=== PATIENT | female | born 1995 | race Caucasian/White ===

== ENCOUNTER 2018-06-30 09:56 | Inpatient (IN) | payer BC, MEDICAID ==
[2018-08-17] MEDS: RINGERS SOLUTION,LACTATED 1,000 ML IV PRN ×4 (08:18→17:25)
[2018-08-17] MEDS ORDERED: RINGERS SOLUTION,LACTATED 300 ML IV ONE (08:30)
[2018-08-17] MEDS ORDERED: OXYTOCIN/NORMAL SALINE 20 UNIT/1,000 ML RTUINJ IV PRN (08:30)
[2018-08-17] MEDS ORDERED: MISOPROSTOL 0.2 MG TABLET ONE (08:53)
[2018-08-17] MEDS ORDERED: OXYTOCIN/NORMAL SALINE 20 UNIT/1,000 ML RTUINJ ONE (08:53)
[2018-08-17] MEDS ORDERED: LIDOCAINE 1% INJ-PF (10 MG/ML) 30 ML SDV ONE (08:53)
[2018-08-17 09:32] LABS: ABSOLUTE EOSINOPHILS # (AUTO) 0.1 10^3/uL (0.0-0.6); ABSOLUTE LYMPHOCYTES (AUTO) 1.6 10^3/uL (0.5-4.7); ABSOLUTE MONOCYTES (AUTO) 0.6 10^3/uL (0.1-1.4); BASOPHILS % (AUTO) 0.4 % (0-2); EOSINOPHILS % (AUTO) 0.9 % (0-6); HEMATOCRIT 30.8 % (36.0-47.0); HEMOGLOBIN 10.1 g/dL (12.0-15.5); LYMPHOCYTES % (AUTO) 17.2 % (13-45); MEAN CORPUSCULAR HEMOGLOBIN 24.4 pg (27.0-33.4); MEAN CORPUSCULAR HGB CONC 32.8 g/dL (32.0-36.0); MEAN CORPUSCULAR VOLUME 74 fl (80-97); MONOCYTES % (AUTO) 6.8 % (3-13); PLATELET COUNT 236 10^3/uL (150-450); RED BLOOD COUNT 4.15 10^6/uL (3.72-5.28); RED CELL DISTRIBUTION WIDTH 15.3 % (11.5-14.0); SEGMENTED NEUTROPHILS % (AUTO) 74.7 % (42-78); TOTAL CELLS COUNTED % (AUTO) 100 %; WHITE BLOOD COUNT 9.3 10^3/uL (4.0-10.5)
[2018-08-17 09:45] LABS: URINE AMPHETAMINES SCREEN NEGATIVE; URINE BARBITURATES SCREEN NEGATIVE; URINE BENZODIAZEPINES SCREEN NEGATIVE; URINE COCAINE SCREEN NEGATIVE; URINE MARIJUANA (THC) SCREEN NEGATIVE; URINE METHADONE SCREEN NEGATIVE; URINE PHENCYCLIDINE SCREEN NEGATIVE
--- NOTE | 2018-08-17 10:02 | Admission Physical ---
Datetime Report Generated by CPN: 08/17/2018 10:01 CURRENT ADMISSION Hx Assessment: The History has been Reviewed and is Current Chief Complaint: Scheduled Induction of Labor Indication for Induction: Postterm Admit Impression : Postterm, Intrauterine Admit Plan: Admit to Unit; Initiate Labor Induction Protocol ALLERGIES Medication Allergies: No Medication Allergies: No Known Allergies (08/15/2018) Latex: No Latex Allergies Food Allergies: N/A OBSTETRICAL HISTORY EDC: 08/10/2018 00:00 : 3 Para: 2 Term: 2 : 0 SAB: 0 IAB: 0 Ectopic: 0 Livin Cesareans: 0 VBACs: 0 Multiple Births: 0 Gestational Diabetes: No Rh Sensitization: No Incompetent Cervix: No HERBER: No Infertility: No ART Treatment: No Uterine Anomaly: No IUGR: No Hx Previous C/S: No Macrosomia: No Hx Loss/Stillborn: No PIH: No Hx : No Placenta Previa/Abruption: No Depression/PP Depression: No PTL/PROM: No Post Hemorrhage: No Current Procedures: Ultrasound; NST Obstetrical History Comments: G1 - 2014, , 40.5 weeks, girl G2 - 2016, , 41 weeks, boy G3 - Current SEE RECORDS Alcohol: No Marijuana : No Cocaine: No Other Illicit Drugs: No Cigarettes: Former Smoker. [id number] Cigarette Frequency: 5 - 10 per day Cigarette Comments: no smoking x 4 years MEDICAL HISTORY Diabetes: No Blood Transfusion: No Pulmonary Disease (Asthma, TB): No Breast Disease: No Hypertension: No Lead Applications Developer Surgery: No Heart Disease: No Hosp/Surgery: No Autoimmune Disorder: No Anesthetic Complications: No Kidney Disease: No Abnormal Pap Smear: No Neuro/Epilepsy: No Psychiatric Disorders: No Other Medical Diseases: No Hepatitis/Liver Disease: No Significant Family History: No Varicosities/Phlebitis: No Trauma/Violence : No Thyroid Dysfunction: No INFECTIOUS HISTORY Gonorrhea: No Genital Herpes: No Chlamydia: Yes Tuberculosis: No Syphilis: No Hepatitis: No HIV/AIDS Exposure: No Rash or Viral Illness: No HPV: No Infectious History Comments: Chlamydia x2 2015 PHYSICAL EXAM General: Normal Heart: Normal Lungs: Normal Abdomen: Normal Extremities: Normal Vital Signs: Reviewed; Within Normal Limits MEMBRANES Membranes: Intact FETUS A EGA: 41.0 Monitoring: External US FHR Category: Category I Presentation: Vertex Admit Comment: 23yo @ 41w A pos, Rubella Immune, GBS negative. Presented to L_D earlier this AM for IOL secondary to post-term. Pt was just started on pitocin. Plan is to continue pitocin and reassess as clinically indicated. Consider AROM. Dr. Oviedo is the [employer] litigation claim representative today and aware of pt. and plan. PLANS FOR LABOR AND DELIVERY Labor and Delivery: None Pain Management: Epidural Feeding Preference: Formula Benefit of Breast Feed Discussed: Yes Circumcision: Yes INFORMED CONSENT Assignment: Tayla Oviedo MD Signature: with User ID: Sommer : with User ID: Sommer
[2018-08-17] MEDS ORDERED: BUPIVACAINE HCL 0.25 % INJ/PF (2.5 MG/1 ML) 30 ML VIAL ONE (16:26)
[2018-08-17] MEDS ORDERED: FENTANYL/BUPIVACAINE/NS/PF 300 MCG/150 ML RTUINJ EPI ONE (16:26)
[2018-08-17] MEDS ORDERED: EPHEDRINE SULFATE INJ 50 MG/1 ML AMPULE ONE (16:26)
[2018-08-18] MEDS ORDERED: CEFAZOLIN 2 GM/D5W RTU 2 GM/50 ML RTUPB IV ONE (01:41)
[2018-08-18] MEDS ORDERED: CITRIC ACID/SODIUM CITRATE ORAL SOLN 15 ML UDCUP ONE (01:41)
[2018-08-18] MEDS ORDERED: CEFAZOLIN 1 GM/D5W RTU 1 GM/50 ML RTUPB IV ONE (01:41)
[2018-08-18] MEDS ORDERED: BUPIVACAINE HCL 0.5 % INJ/PF 30 ML SDV ONE (01:47)
[2018-08-18] MEDS ORDERED: CEFAZOLIN SODIUM 3 GM in DEXTROSE 5%-WATER 50 ML IV PRN (01:51)
[2018-08-18] MEDS ORDERED: OXYTOCIN 10 UNIT/ML VIAL ONE ×3 (01:57→03:12)
[2018-08-18] MEDS ORDERED: EPHEDRINE SULFATE INJ 50 MG/1 ML AMPULE ONE (01:58)
[2018-08-18] MEDS ORDERED: KETOROLAC TROMETHAMINE INJ/PF 30 MG/1 ML SDV ONE ×2 (01:58→05:12)
[2018-08-18] MEDS ORDERED: FENTANYL CITRATE INJ/PF 100 MCG/2 ML AMPUL ONE (01:58)
[2018-08-18] MEDS ORDERED: MIDAZOLAM 2 MG/2 ML INJ ONE (01:58)
[2018-08-18] MEDS ORDERED: METHYLERGONOVINE MALEATE INJ/PF 0.2 MG/1 ML AMPULE ONE (01:59)
[2018-08-18] MEDS ORDERED: ONDANSETRON HCL INJ/PF 4 MG/2 ML SDV ONE (01:59)
[2018-08-18] MEDS ORDERED: ACETAMINOPHEN 1,000 MG/100 ML RTUPB IV ONE (01:59)
[2018-08-18] MEDS ORDERED: MISOPROSTOL 0.2 MG TABLET ONE (02:36)
[2018-08-18] MEDS ORDERED: CARBOPROST TROMETHAMINE INJ 250 MCG/1 ML AMPULE ONE (02:37)
[2018-08-18] MEDS ORDERED: DIPHENHYDRAMINE HCL 50 MG/ML VIAL IV PRN (02:40)
[2018-08-18] MEDS ORDERED: ONDANSETRON HCL INJ/PF 4 MG/2 ML SDV IV PRN (02:40)
[2018-08-18] MEDS ORDERED: FENTANYL CITRATE INJ/PF 100 MCG/2 ML AMPUL IV PRN ×3 (02:40)
[2018-08-18] MEDS ORDERED: PROMETHAZINE HCL INJ 25 MG/1 ML VIAL IV PRN ×3 (02:40→03:17)
[2018-08-18] MEDS ORDERED: OXYCODONE-ACETAMINOPHEN 5-325 MG TABLET PO PRN ×3 (02:40→03:17)
[2018-08-18] MEDS ORDERED: MEPERIDINE HCL/PF INJ 25 MG/1 ML DISP.SYRIN IV PRN (02:40)
[2018-08-18] MEDS ORDERED: MORPHINE SULFATE 10 MG/ML INJ IV PRN (02:40)
[2018-08-18] MEDS ORDERED: ACETAMINOPHEN 325 MG TABLET PO PRN (03:17)
[2018-08-18] MEDS ORDERED: MEASLES,MUMPS&RUBELLA VACC/PF 0.5 ML VIAL SUBCUT PRN (03:17)
[2018-08-18] MEDS ORDERED: SIMETHICONE 80 MG TAB.CHEW PO PRN (03:17)
[2018-08-18] MEDS ORDERED: OXYTOCIN/NORMAL SALINE 20 UNIT/1,000 ML RTUINJ IV PRN (03:17)
[2018-08-18] MEDS ORDERED: ACETAMINOPHEN 1,000 MG/100 ML RTUPB IV PRN (03:17)
[2018-08-18] MEDS ORDERED: HYDROMORPHONE HCL INJ/PF 2 MG/ML AMPULE IV PRN (03:17)
[2018-08-18] MEDS ORDERED: DIPH/PERTUSS(ACELL)/TETANUS VAC/PF 0.5 ML SYR (>=10YO) IM PRN (03:17)
[2018-08-18] MEDS ORDERED: CARBOPROST TROMETHAMINE INJ 250 MCG/1 ML AMPULE IM ONE (03:23)
--- NOTE | 2018-08-18 03:23 | Brief Operative Note ---
BRIEF OPERATIVE REPORT DATE OF SURGERY: 08/18/18 TIME OF SURGERY: 02:00 PREOPERATIVE DIAGNOSIS: , 41+0ega, Macrosomia, Undesired Fertility, Obesity, Arrest of Dilation POSTOPERATIVE DIAGNOSIS: AUBRIE - delivered SURGEON: CHANDAN DANG FINDINGS: VMI delivered 0233, weight 4810g, 10#10oz, Apgars 8/9, OP presentation. Normal bilateral tubes and ovaries. Uterine atony resolved with 30units IV bag pitocin, 250mcg hemabate IM into uterine myometrium. Bilateral fallopian tubes occluded with filschie clips COMPLICATIONS: None ESTIMATED BLOOD LOSS: 1477 TISSUE REMOVED OR ALTERED: placenta and cord not sent to pathology TECHNICAL PROCEDURE: Primary section with Bilateral tubal occlusion
[2018-08-18] MEDS ORDERED: MISOPROSTOL 0.1 MG TABLET PR ONE (03:24)
--- NOTE | 2018-08-18 05:27 | Delivery Summary ---
Del Sum A-C Datetime Report Generated by CPN: 08/18/2018 05:26 DELIVERY PERSONNEL DELIVERY PERSONNEL: [id number] Delivery Doctor:: Tayla Oviedo MD Anesthesiologist:: Marc León MD HOME RESTORATION SERVICE SUPERVISOR:: Oliva South, HOME RESTORATION SERVICE SUPERVISOR Supervisor Finishing:: Kaylan Simpson, RN Telecommunications Analyst/PROGRAMMING DEVELOPMENT PROJECT MANAGER: Debra Green, ST Telecommunications Analyst/PROGRAMMING DEVELOPMENT PROJECT MANAGER: Celeste Xie, ST MATERNAL INFORMATION Medications After Delivery: Cytotec 1000mcg Per Rectum/Vagina LABOR SUMMARY EDC: 08/10/2018 00:00 No. Babies in Womb: 1 Attempted: No Labor Anesthesia: Epidural LABOR INFORMATION Reason for Induction: Post Dates Onset of Labor: 08/17/2018 12:36 Cervical Ripening Agents: Cervidil Oxytocin: Induction Group B Beta Strep: Negative Steroids Given: None Reason Steroids Not Administered: Not Applicable MEMBRANES Membranes Rupture Method: Spontaneous Rupture of Membranes: 08/17/2018 12:36 Length of Rupture (hr): 13.95 Amniotic Fluid Color: Light Meconium Amniotic Fluid Amount: Moderate Amniotic Fluid Odor: None STAGES OF LABOR Stage 3 hr: 0 Stage 3 min: 1 Total Time in Labor hr: 13 Total Time in Labor min: 58 VAGINAL DELIVERY Episiotomy: None Laceration #1: None Laceration Extension #1: N/A Sponge Count Correct: N/A Sharps Count Correct: N/A CSECTION DELIVERY Primary Indication: Arrest of Descent Secondary Indication: N/A CSection Urgency: Non-Scheduled CSection Incidence: Primary Labor: Labor Elective: Nonelective CSection Incision: Lower Uterine Transverse Sterilization Procedure: Ring and Clip BABY A INFORMATION Infant Delivery Date/Time: 08/18/2018 02:33 Method of Delivery: Born in Route : No : N/A Forceps: N/A Vacuum Extraction: N/A Shoulder Dystocia : No PRESENTATION/POSITION BABY A Presentation: Cephalic Cephalic Presentation: Vertex Breech Presentation: N/A PLACENTA INFORMATION BABY A Placenta Delivery Time : 08/18/2018 02:34 Placenta Method of Delivery: Manual Removal Placenta Status: Delivered SCORES BABY A Heart Rate 1 min: >100 bpm Resp Effort 1 min: Good Cry Reflex Irritability 1 min: Cough or Sneeze or Pulls Away Muscle Tone 1 min: Active Motion Color 1 min: Blue/Pale Resuscitation Effort 1 min: Tactile Stimulation SCORE 1 MIN: 8 Heart Rate 5 min: >100 bpm Resp Effort 5 min: Good Cry Reflex Irritability 5 min: Cough or Sneeze or Pulls Away Muscle Tone 5 min: Active Motion Color 5 min: Body [place], Extremities Blue SCORE 5 MIN: 9 INFANT INFORMATION BABY A Gestational Age at Delivery: 41.1 Gestational Status: Late Term- 41- 41.6 Weeks Infant Outcome : Liveborn Infant Condition : Stable Sex: Male IDENTIFICATION BABY A Infant Verification Date/Time: 08/18/2018 03:27 ID Band Number: [id number] Mother's Name Verified: Yes RN Verifying : Boy Simpson RN, A. Namitayak RN WEIGHT/LENGTH BABY A Infant Birthweight (gm): 4810 Infant Weight (lb): 10 Weight (oz): 10 Infant Length (in): 22.50 Length (cm): 57.15 CORD INFORMATION BABY A No. Cord Vessels: 3 Nuchal Cord : N/A Cord Blood Taken: Yes-For Storage (Mom's Blood type +) Suction: Mouth; Nose ASSESSMENT BABY A Complications: None Physical Findings at Delivery: Within Normal Limits Respirations: Appears Normal Tile Mason/ALS Called : Yes Infant Care By: Melvin SPANN, Hector Velez RN Transferred To: Nursery
[2018-08-18] MEDS: KETOROLAC TROMETHAMINE INJ/PF 30 MG/1 ML SDV IV SCH ×3 (05:59→22:26)
--- NOTE | 2018-08-18 07:47 | Operative Report ---
Operative Report DATE OF SURGERY: 08/18/18 PREOPERATIVE DIAGNOSIS: , 41+0ega, Macrosomia, Undesired Fertility, Obes ity, Arrest of Dilation, Post hemorrhage POSTOPERATIVE DIAGNOSIS: AUBRIE - delivered, uterine atony with hemorrhage OPERATION: Primary section with Bilateral tubal occlusion SURGEON: CHANDAN DANG ANESTHESIA: Epidural TISSUE REMOVED OR ALTERED: placenta and cord not sent to pathology COMPLICATIONS: uterine atony ESTIMATED BLOOD LOSS: 1477 INTRAOPERATIVE FINDINGS: VMI delivered 0233, weight 4810g, 10#10oz, Apgars 8/9, OP presentation. Normal bilateral tubes and ovaries. Uterine atony resolved with 30units IV bag pitocin, 250mcg hemabate IM into uterine myometrium. Cytotec 1000mcg PA. Bilateral fallopian tubes occluded with filschie clips PROCEDURE: Anesthesia provider: [Mau SAWYER, Bertha South CRNA] Urine output: [200ml] IV fluids: [400ml] Complications: [None] Specimens: [None] Indications: [23yo at 41+1ega presented for Induction of labor due to post BRIDGER. Her first two babies were 7 pounds and 8 pounds. She reports that she feels that this baby is significantly larger. No GDM. 1 hr GTT was 80. She was admitted for pitocin at 0800 at cervical dilation of 2/50/-2. SROM at noon and then cervical change to 5.5cm at 2100. At 2300 cervix change to 6.5cm/70/-2 and IUPC placed and MVUs not adequate on monitor. She began to feel significant pressure and Cervix re-evaluated at 0135 and IUPC noted to be out of cervix therefore repositioned and MVUs 180-215 likely since placement. Cervix now 5.5cm due to swelling. Reviewed with patient at that time that with adequate MVUs likely since placement and minimal to no cervical change and no change in station with suspected 9#13oz baby based on US done on 08/15/2018 would recommend section at this time. Patient and family agreed with section for arrest of dilation. She also desires tubal ligation and is 100% sure that she has completed childbearing. Will proceed with Primary Section and Bilateral tubal ligation. The risks/benefits/alternatives were reviewed and she desires to proceed. ] Procedure: The patient was taken to the operating room where epidural anesthesia was obtained and found to be adequate. She was then prepped and draped in the normal sterile fashion and placed in the dorsal supine position with a leftward tilt. A Pfannenstiel skin incision was then made and carried through to the underlying layers of the fascia with the scalpel. The fascia was incised in the midline and the incision extended laterally with the Fishman scissors. The superior aspect of the fascial incision was then grasped with [place] clamps elevated and the underlying rectus muscles dissected off [bluntly]. Attention was then turned to the inferior aspect of the fascial incision which in a similar fashion was grasped, tented up with David clamps, and the rectus muscles dissected off [bluntly]. The rectus muscles were then in the midline and the peritoneum at the amount identified and entered [bluntly]. The peritoneal incision was then extended superiorly and inferiorly with good visualization of the bladder. The bladder blade was inserted and the vesicouterine peritoneum identified grasped with Bulgarian pickups and entered sharply with the Metzenbaum scissors. This incision was then extended laterally with the Metzenbaum scissors and a bladder flap created digitally. The bladder blade was then reinserted and the lower uterine segment incised in a transverse fashion with the scalpel. The uterine incision was then extended bluntly. The bladder blade was removed and the 's head was delivered from cephalic presentation atraumatically. The nose and mouth were suctioned and the cord doubly clamped and cut. And the infant was handed off to waiting pediatricians. The placenta was then delivered spontaneously and the uterus exteriorized and cleared of all clots and debris. The uterine incision was then repaired with 1- 0 Vicryl in a running locked fashion. A second layer of the same suture was used to obtain hemostasis via imbrication of the initial layer. The bladder flap was then repaired with 3-0 chromic in a running fashion. Intrauterine Hemabate placed and 10 units of pitocin added to IV bag due to uterine atony with good response. The right fallopian tube was identified and followed out to the fimbriated end and Filschie clip was placed. This procedure was repeated on the patients left and thus completed the bilateral tubal ligation. The uterus was returned to the patient's abdomen. The gutters were cleared of all clots and debris. All operative sites were noted to be hemostatic. The fascia was reapproximated with 0 Vicryl in a running fashion from each lateral edge to the midline. The skin was closed with 3-0 Monocryl in a running subcuticular fashion with overlying Dermabond for additional dressing as well as wound closure. The patient tolerated the procedure well. Sponge lap needle and instrument counts are correct times 2. 3 g of Ancef were given prior to skin incision. Cytotec 1000mcg per rectum placed postoperative to continue to assist with uterine tone. The patient was taken to the recovery area awake and in stable condition.
[2018-08-18 08:43] LABS: ABSOLUTE LYMPHOCYTES (AUTO) 1.4 10^3/uL (0.5-4.7); ABSOLUTE MONOCYTES (AUTO) 1.1 10^3/uL (0.1-1.4); ABSOLUTE NEUT (AUTO) 14.5 10^3/uL (1.7-8.2); BASOPHILS % (AUTO) 0.1 % (0-2); HEMATOCRIT 23.2 % (36.0-47.0); LYMPHOCYTES % (AUTO) 8.2 % (13-45); MEAN CORPUSCULAR HEMOGLOBIN 24.3 pg (27.0-33.4); MEAN CORPUSCULAR HGB CONC 32.5 g/dL (32.0-36.0); MEAN CORPUSCULAR VOLUME 75 fl (80-97); MONOCYTES % (AUTO) 6.4 % (3-13); PLATELET COUNT 210 10^3/uL (150-450); RED BLOOD COUNT 3.09 10^6/uL (3.72-5.28); RED CELL DISTRIBUTION WIDTH 15.4 % (11.5-14.0); SEGMENTED NEUTROPHILS % (AUTO) 85.3 % (42-78); TOTAL CELLS COUNTED % (AUTO) 100 %
[2018-08-18 08:52] LABS: HEMOGLOBIN 7.5 g/dL (12.0-15.5)
--- NOTE | 2018-08-18 10:02 | PDOC PROGRESS REPORT ---
Subjective-OB Progress Note for:: 08/18/18 - Delivery Day, POD #0, pt groggy. S/p Dilauded for pain. Though able to answer my questerions. Denies pain or SOB. Physical Exam (OB) Vital Signs: Temp Pulse Resp BP Pulse Ox 97.8 F 83 16 126/63 H 95 08/18/18 08:43 08/18/18 08:43 08/18/18 08:43 08/18/18 08:43 08/18/18 08:43 Intake & Output 08/17/18 08/18/18 08/19/18 06:59 06:59 06:59 Intake Total 1044 550 Balance 1044 550 Weight 112 kg - General General Appearance: Appears well, Sedated In distress: None - Dressing Removed: No Incision: Dressing - Lochia Lochia Amount: Small 10-25 ml Lochia Color: Rubra/Red - Abdomen Description: Round Hernia Present: No Fundal Description: Firm, Midline Fundal Height: u/u - u/2 - Respiratory Respiratory Status: No respiratory distress - Neurological Cognition: Normal Orientation: Oriented to person, Oriented to place Speech: Normal - Psychological Associated symptoms: Normal affect - Skin Skin Temperature: Warm Skin Moisture: Dry Objective-Diagnostic Laboratory: 08/18/18 08:07 08/17/18 08/18/18 09:10 08:07 WBC 17.0 H RBC 3.09 L Hgb 7.5 L D Hct 23.2 L MCV 75 L MCH 24.3 L MCHC 32.5 RDW 15.4 H Plt Count 210 Seg Neutrophils % 85.3 H Lymphocytes % 8.2 L Monocytes % 6.4 Eosinophils % 0.0 Basophils % 0.1 Absolute Neutrophils 14.5 H Absolute Lymphocytes 1.4 Absolute Monocytes 1.1 Absolute Eosinophils 0.0 Absolute Basophils 0.0 Blood Type A POSITIVE Antibody Screen NEGATIVE Assessment and Plan(PN) - Assessment and Plan (1) Anemia during in third trimester Is this a current diagnosis for this admission?: Yes (2) Arrest of dilation, delivered, current hospitalization Is this a current diagnosis for this admission?: Yes (3) Encounter for sterilization Is this a current diagnosis for this admission?: Yes (4) Macrosomia affecting management of mother in third trimester Qualifiers: Fetus number: fetus 3 of multiple gestation Qualified Code(s): O36.63X3 - Maternal care for excessive growth, third trimester, fetus 3 Is this a current diagnosis for this admission?: Yes (6) Status post primary low transverse section Is this a current diagnosis for this admission?: Yes (7) Obesity Qualifiers: Obesity type: due to excess calories Is this a current diagnosis for this admission?: Yes - Time Spent with Patient Time with patient: Less than 15 minutes Medications reviewed and adjusted accordingly: Yes - Disposition Anticipated Discharge: Home Within: within 48 hours - Dr Oviedo aware of pts Hgb 7.5, states we will watch to see if pt becomes symptomatic, pt may need a blood transfusion if she experiences symptoms.
[2018-08-18] MEDS: PRENATAL VITAMIN W DHA CAPSULE PO SCH (10:34)
[2018-08-18] MEDS: DOCUSATE SODIUM 100 MG CAPSULE PO SCH ×2 (10:35→18:14)
[2018-08-18] MEDS: RINGERS SOLUTION,LACTATED 1,000 ML IV PRN (13:42)
[2018-08-18] MEDS: OXYCODONE-ACETAMINOPHEN 5-325 MG TABLET PO PRN ×2 (16:03→20:33)
[2018-08-19] MEDS: IBUPROFEN 800 MG TABLET PO SCH ×3 (05:11→17:16)
[2018-08-19] MEDS: OXYCODONE-ACETAMINOPHEN 5-325 MG TABLET PO PRN ×4 (06:44→20:49)
[2018-08-19 07:56] LABS: HEMATOCRIT 20.3 % (36.0-47.0); MEAN CORPUSCULAR HEMOGLOBIN 24.4 pg (27.0-33.4); MEAN CORPUSCULAR HGB CONC 32.5 g/dL (32.0-36.0); MEAN CORPUSCULAR VOLUME 75 fl (80-97); PLATELET COUNT 172 10^3/uL (150-450); RED CELL DISTRIBUTION WIDTH 15.7 % (11.5-14.0); WHITE BLOOD COUNT 9.9 10^3/uL (4.0-10.5)
[2018-08-19 08:02] LABS: HEMOGLOBIN 6.6 g/dL (12.0-15.5)
[2018-08-19] MEDS ORDERED: NORMAL SALINE 250 ML IV PRN (09:03)
[2018-08-19] MEDS: DOCUSATE SODIUM 100 MG CAPSULE PO SCH ×2 (10:15→17:16)
[2018-08-19] MEDS: PRENATAL VITAMIN W DHA CAPSULE PO SCH (10:15)
--- NOTE | 2018-08-19 10:37 | PDOC PROGRESS REPORT ---
Subjective-OB Progress Note for:: 08/19/18 Subjective: Sitting up in chair, feels dizzy when getting OOB, bottle feeding, eating well, discussed blood transfusion and pt agrees Physical Exam (OB) Vital Signs: Temp Pulse Resp BP Pulse Ox 97.7 F 93 18 126/73 H 96 08/19/18 07:58 08/19/18 07:58 08/19/18 07:58 08/19/18 07:58 08/19/18 07:58 Intake & Output 08/18/18 08/19/18 08/20/18 06:59 06:59 06:59 Intake Total 2043 2400 Output Total 1300 Balance 2043 1100 Weight 112 kg - PIH/Pre-Eclampsia DTR's: 2 + Clonus: Negative Headache: Absent Epigastric Pain: No Visual Changes: No - Dressing Removed: No - Medipore pressure dressing CD&I Incision: Dressing - Lochia Lochia Amount: Scant < 10 ml Lochia Color: Rubra/Red - Abdomen Description: Tender, Soft Hernia Present: No Fundal Description: Firm, Midline Fundal Height: u/u - u/2 Objective-Diagnostic Laboratory: 08/19/18 07:32 08/17/18 08/19/18 09:10 07:32 WBC 9.9 RBC 2.70 L Hgb 6.6 L Hct 20.3 L MCV 75 L MCH 24.4 L MCHC 32.5 RDW 15.7 H Plt Count 172 Blood Type A POSITIVE Antibody Screen NEGATIVE Assessment and Plan(PN) - Assessment and Plan (1) Anemia during in third trimester Is this a current diagnosis for this admission?: Yes (2) Macrosomia affecting management of mother in third trimester Qualifiers: Fetus number: fetus 3 of multiple gestation Qualified Code(s): O36.63X3 - Maternal care for excessive growth, third trimester, fetus 3 Is this a current diagnosis for this admission?: Yes (3) hemorrhage of section wound Is this a current diagnosis for this admission?: Yes (4) Status post primary low transverse section Is this a current diagnosis for this admission?: Yes (5) Obesity Qualifiers: Obesity type: due to excess calories Obesity classification: unspecified obesity classification Is this a current diagnosis for this admission?: Yes - Time Spent with Patient Medications reviewed and adjusted accordingly: Yes - Disposition Anticipated Discharge: Home Within: within 24 hours
--- NOTE | 2018-08-19 10:42 | PDOC DISCHARGE SUMMARY ---
Final Diagnosis Discharge Date: 08/20/18 - Final Diagnosis (1) Anemia during in third trimester Is this a current diagnosis for this admission?: Yes (2) Macrosomia affecting management of mother in third trimester Is this a current diagnosis for this admission?: Yes (3) hemorrhage of section wound Is this a current diagnosis for this admission?: Yes (4) Status post primary low transverse section Is this a current diagnosis for this admission?: Yes Discharge Data - Discharge Medication Prescriptions: Oxycodone HCl/Acetaminophen [Percocet 5-325 mg Tablet] 1 tab PO Q4HP PRN #30 tablet PRN Reason: Ibuprofen [Motrin 800 mg Tablet] 800 mg PO Q6 #60 tablet Home Medications: Ferrous Sulfate [Feosol 325 mg Tablet] 325 mg PO BID #60 tablet 12/01/15 Pnv No.95/Ferrous Fum/Folic AC [ Multivitamin Tablet] 1 tab PO DAILY Ibuprofen [Motrin 800 mg Tablet] 800 mg PO Q6 #60 tablet 08/19/18 Oxycodone HCl/Acetaminophen [Percocet 5-325 mg Tablet] 1 tab PO Q4HP PRN #30 tablet 08/19/18 Gestational Age: 41.1 Reason(s) for Admission: Induction of Labor Procedures: NST, Ultrasound Intrapartum Procedure(s): : Low Cervical, Transverse, Tubal Ligation - Data Baby 1 Male at 1 minute: 8 at 5 minutes: 9 Weight: 4.819 kg Home with Mother: Yes Complications: No - Diagnosis Test Laboratory: Temp Pulse Resp BP Pulse Ox 97.7 F 93 18 126/73 H 96 08/19/18 07:58 08/19/18 07:58 08/19/18 07:58 08/19/18 07:58 08/19/18 07:58 08/17/18 08/17/18 08/18/18 07:40 09:10 08:07 RBC 4.15 3.09 L Hgb 10.1 L 7.5 L D Hct 30.8 L 23.2 L Urine Opiates Screen NEGATIVE 08/19/18 07:32 RBC 2.70 L Hgb 6.6 L Hct 20.3 L Urine Opiates Screen - Discharge information/Instructions Discharge Activity: Activity As Tolerated, Balance Activity w/Rest, No Lifting Over 10 Pounds, No Lifting/Push/Pulling, Pelvic Rest Discharge Diet: As Tolerated, Regular Disposition: HOME, SELF-CARE Follow up with: [facility] in: 1, Weeks
[2018-08-20] MEDS: IBUPROFEN 800 MG TABLET PO SCH ×3 (00:02→11:56)
[2018-08-20] MEDS: OXYCODONE-ACETAMINOPHEN 5-325 MG TABLET PO PRN ×2 (07:44→13:33)
[2018-08-20] MEDS: PRENATAL VITAMIN W DHA CAPSULE PO SCH (09:05)
[2018-08-20] MEDS: DOCUSATE SODIUM 100 MG CAPSULE PO SCH (09:05)
--- NOTE | 2018-08-20 09:06 | PDOC PROGRESS REPORT ---
Subjective-OB Progress Note for:: 08/20/18 Subjective: Doing well, ready to go home, feeling better after blood transfusion8, voiding, ambulating Physical Exam (OB) Vital Signs: Temp Pulse Resp BP Pulse Ox 98.3 F 100 16 126/82 H 100 08/20/18 07:36 08/20/18 07:36 08/20/18 07:36 08/20/18 07:36 08/20/18 07:36 Intake & Output 08/19/18 08/20/18 08/21/18 06:59 06:59 06:59 Intake Total 2400 600 Output Total 1300 1000 Balance 1100 -400 Baby 1 Male 4.819 kg - PIH/Pre-Eclampsia DTR's: 1 + Clonus: Negative Headache: Absent Epigastric Pain: No Visual Changes: No - Dressing Removed: Yes Incision: Open Closure Type: pressure - Lochia Lochia Amount: Scant < 10 ml Lochia Color: Rubra/Red - Abdomen Description: Soft, Round Hernia Present: No Fundal Description: Firm, Midline Fundal Height: u/u - u/2 Objective-Diagnostic Laboratory: 08/19/18 07:32 08/17/18 09:10 Blood Type A POSITIVE Antibody Screen NEGATIVE Assessment and Plan(PN) - Assessment and Plan (1) Anemia during in third trimester Is this a current diagnosis for this admission?: Yes (2) Macrosomia affecting management of mother in third trimester Qualifiers: Fetus number: fetus 3 of multiple gestation Qualified Code(s): O36.63X3 - Maternal care for excessive growth, third trimester, fetus 3 Is this a current diagnosis for this admission?: Yes (3) hemorrhage of section wound Is this a current diagnosis for this admission?: Yes (4) Status post primary low transverse section Is this a current diagnosis for this admission?: Yes (5) Obesity Qualifiers: Obesity type: due to excess calories Obesity classification: unspecified obesity classification Is this a current diagnosis for this admission?: Yes - Time Spent with Patient Medications reviewed and adjusted accordingly: Yes - Disposition Anticipated Discharge: Home Within: within 24 hours
--- NOTE | 2018-08-20 09:08 | PDOC DISCHARGE SUMMARY ---
Final Diagnosis Discharge Date: 08/20/18 - Final Diagnosis (1) Anemia during in third trimester Is this a current diagnosis for this admission?: Yes (2) Macrosomia affecting management of mother in third trimester Is this a current diagnosis for this admission?: Yes (3) hemorrhage of section wound Is this a current diagnosis for this admission?: Yes (4) Status post primary low transverse section Is this a current diagnosis for this admission?: Yes Discharge Data - Discharge Medication Prescriptions: Oxycodone HCl/Acetaminophen [Percocet 5-325 mg Tablet] 1 tab PO Q4HP PRN #30 tablet PRN Reason: Ibuprofen [Motrin 800 mg Tablet] 800 mg PO Q6 #60 tablet Home Medications: Ferrous Sulfate [Feosol 325 mg Tablet] 325 mg PO BID #60 tablet 12/01/15 Pnv No.95/Ferrous Fum/Folic AC [ Multivitamin Tablet] 1 tab PO DAILY Ibuprofen [Motrin 800 mg Tablet] 800 mg PO Q6 #60 tablet 08/19/18 Oxycodone HCl/Acetaminophen [Percocet 5-325 mg Tablet] 1 tab PO Q4HP PRN #30 tablet 08/19/18 Gestational Age: 41.1 Reason(s) for Admission: Induction of Labor Procedures: NST, Ultrasound Intrapartum Procedure(s): : Low Cervical, Transverse Complication(s): Transfusion, Tubal Ligation - Diagnosis Test Laboratory: Temp Pulse Resp BP Pulse Ox 98.3 F 100 16 126/82 H 100 08/20/18 07:36 08/20/18 07:36 08/20/18 07:36 08/20/18 07:36 08/20/18 07:36 08/17/18 08/17/18 08/18/18 07:40 09:10 08:07 RBC 4.15 3.09 L Hgb 10.1 L 7.5 L D Hct 30.8 L 23.2 L Urine Opiates Screen NEGATIVE 08/19/18 07:32 RBC 2.70 L Hgb 6.6 L Hct 20.3 L Urine Opiates Screen - Discharge information/Instructions Discharge Activity: Activity As Tolerated, Balance Activity w/Rest, No Lifting Over 10 Pounds, No Lifting/Push/Pulling, Pelvic Rest Discharge Diet: As Tolerated, Regular Disposition: HOME, SELF-CARE Follow up with: [facility] in: 1, Weeks
[2018-08-20 11:50] VITALS: BP 142/72
== END 2018-08-20 14:00 | disposition home or self-care (01) | DRG 784 ==
LOC: LR 08-17 07:35 → 2S 08-18 05:33
PROVIDERS: ADMIT Student in an Organized Health Care Education/Training Program; ATTEND Student in an Organized Health Care Education/Training Program
PROC: 3E033VJ Introduction of Other Hormone into Peripheral Vein, Percutaneous Approach (ICD-10-PCS; principal; 2018-08-18)
PROC: 10D00Z1 Extraction of Products of Conception, Low, Open Approach (ICD-10-PCS; 2018-08-18)
PROC: 0UL70CZ Occlusion of Bilateral Fallopian Tubes with Extraluminal Device, Open Approach (ICD-10-PCS; 2018-08-18)
PROC: 4A1HXCZ Monitoring of Products of Conception, Cardiac Rate, External Approach (ICD-10-PCS; 2018-08-18)
PROC: 30233N1 Transfusion of Nonautologous Red Blood Cells into Peripheral Vein, Percutaneous Approach (ICD-10-PCS; 2018-08-19)
DX: O62.1 Secondary uterine inertia (principal); O72.1 Other immediate postpartum hemorrhage; Z30.2 Encounter for sterilization; O48.0 Post-term pregnancy; O77.0 Labor and delivery complicated by meconium in amniotic fluid; Z37.0 Single live birth; O99.214 Obesity complicating childbirth; E66.9 Obesity, unspecified; O99.02 Anemia complicating childbirth; D64.9 Anemia, unspecified; Z87.891 Personal history of nicotine dependence; Z86.19 Personal history of other infectious and parasitic diseases; Z3A.41 41 weeks gestation of pregnancy
CPT/HCPCS: 1961; 36415; 36430; 80307; 85025; 85027; 86592; 86850; 86900; 86901; 86920; 94760; 94799; J0131; J0690; J1170; J1885; J2210; J2250; J2405; J2590; J3010; J3490; J7120; P9016

== ENCOUNTER 2018-08-11 10:15 | Outpatient (CLI) | payer BC, MEDICAID ==
--- NOTE | 2018-08-11 10:51 | Non Stress Test Report ---
Non Stress Test Datetime Report Generated by CPN: 08/11/2018 10:51 INDICATION Indication for Study: Ordered by Provider MONITORING Monitor Explained: Monitor Explained; Test Explained; Patient Verbalized Understanding Time on Monitor: 08/11/2018 10:24 Time off Monitor: 08/11/2018 10:50 NST Duration: 26 NST INTERVENTIONS NST Interventions: PO Hydration; Reposition Patient Physician Notified NST: LEONARD Murcia BABY A: [id number] BABY A Movement : Present Contraction Frequency : 2.5-5 FHR Baseline : 125 Accelerations : 15X15 Decelerations : None Variability : Moderate 6-25bpm NST Review: Meets Criteria for Reactive NST NST Review and Verified By : ONEIDA Ambrocio Results: Reactive NST REPORT Report Trigger: Send Report
== END 2018-08-11 10:52 | disposition home or self-care (01) ==
LOC: LC 10:15
PROVIDERS: ATTEND Obstetrics & Gynecology Gynecology
PROC: 4A1HXCZ Monitoring of Products of Conception, Cardiac Rate, External Approach (ICD-10-PCS; principal; 2018-08-11)
DX: Z34.93 Encounter for supervision of normal pregnancy, unspecified, third trimester (principal)
CPT/HCPCS: 59025

== ENCOUNTER 2018-08-21 00:43 | Emergency (ER) | payer BC, MEDICAID ==
[2018-08-21] MEDS ORDERED: LIDOCAINE 2% VISCOUS SOLN 20 ML UDCUP PO ONE (01:33)
[2018-08-21] MEDS ORDERED: METOCLOPRAMIDE HCL ORAL SOLN 10 MG/10 ML UDCUP PO ONE (01:33)
[2018-08-21] MEDS ORDERED: MAG HYDROX/AL HYDROX/SIMETH SUSP 30 ML UDCUP PO ONE (01:33)
--- NOTE | 2018-08-21 01:33 | ER Document Report ---
ED General - General Chief Complaint: Chest Pain Stated Complaint: CHEST PAIN Time Seen by Provider: 08/21/18 01:25 Primary Care Provider: WYATT SAENZ DO [NO LOCAL MD] - Follow up as needed Mode of Arrival: Ambulatory Information source: Patient Notes: This is a 23-year-old female with no significant medical problems, status post 08/18/18, just discharged earlier today. Patient states she was doing fine until she went to lay down and then had burning across her chest and she felt cold. She denies any shortness of breath. She does report having swelling of the lower extremities in the hospital. She was given a transfusion while she was in the hospital. TRAVEL OUTSIDE OF THE [place] IN LAST 30 DAYS: No - HPI Onset: Just prior to arrival Onset/Duration: Sudden Severity: None Pain Level: 0 Associated symptoms: Other - Burning/heartburn. denies: Chest pain, Fever, Shortness of breath Similar symptoms previously: No Recently seen / treated by doctor: Yes - Related Data Allergies/Adverse Reactions: No Known Allergies Allergy (Verified 08/21/18 00:56) Past Medical History - General Information source: Patient - Social History Smoking Status: Never Smoker Cigarette use (# per day): No Chew tobacco use (# tins/day): No Frequency of alcohol use: None Drug Abuse: None Lives with: Family Family History: Reviewed & Not Pertinent, Other - Patient is unaware of sick contacts. Patient has suicidal ideation: No Patient has homicidal ideation: No - Past Medical History Cardiac Medical History: Reports: None Pulmonary Medical History: Reports: None Neurological Medical History: Reports: None Endocrine Medical History: Reports: None Renal/ Medical History: Reports: None Malignancy Medical History: Reports: None GI Medical History: Reports: None Psychiatric Medical History: Reports: None Traumatic Medical History: Reports: None Infectious Medical History: Reports: None Past Surgical History: Reports: Hx Section - Immunizations Immunizations up to date: Yes Hx Diphtheria, Pertussis, Tetanus Vaccination: Yes - 11/23/14 Review of Systems - Review of Systems Constitutional: denies: Chills, Fever EENT: No symptoms reported Cardiovascular: denies: Chest pain, Palpitations, Heart racing Respiratory: denies: Cough, Short of breath, Wheezing Gastrointestinal: Other - Burning. denies: Abdominal pain Genitourinary: See HPI Female Genitourinary: See HPI Musculoskeletal: No symptoms reported Skin: No symptoms reported Hematologic/Lymphatic: No symptoms reported Neurological/Psychological: No symptoms reported Physical Exam - Vital signs Vitals: Temp Pulse Resp BP Pulse Ox 98.5 F 93 16 151/90 H 97 08/21/18 00:56 08/21/18 00:56 08/21/18 00:56 08/21/18 00:56 08/21/18 00:56 Notes: Physical exam: GENERAL: Patient is alert and oriented x3, no acute distress HEAD: Atraumatic, normocephalic. EYES: Pupils equal round and reactive to light, extraocular movements intact, sc toy anicteric, conjunctiva are normal. ENT: TMs normal, nares patent, oropharynx clear without exudates. Moist mucous membranes. NECK: Normal range of motion, supple without obvious mass or JVD. LUNGS: Breath sounds clear to auscultation bilaterally and equal. No wheezes rales or rhonchi. HEART: Regular rate and rhythm without murmurs, rubs or gallops. ABDOMEN: Soft, normoactive bowel sounds. No tenderness to palpation. No guarding, no rebound. No masses appreciated. site: Dry and intact Skin: Patient does have some blistering on the flanks bilaterally right with the underwear band would be. Is no obvious cellulitis. EXTREMITIES: Normal range of motion, no pitting or edema. No clubbing or cyanosis. NEUROLOGICAL: Cranial nerves II through XII grossly intact. Normal speech, moving all extremities. PSYCH: Normal mood, normal affect. SKIN: Warm, Dry, normal turgor, no rashes or lesions noted. Course - Vital Signs Vital signs: Temp Pulse Resp BP Pulse Ox 98.5 F 80 19 143/84 H 100 08/21/18 00:56 08/21/18 01:57 08/21/18 02:08 08/21/18 02:08 08/21/18 02:08 - Laboratory Result Diagrams: 08/21/18 01:39 08/21/18 01:39 Laboratory results interpreted by me: 08/21/18 08/21/18 01:39 01:39 RBC 3.33 L Hgb 8.5 L Hct 25.7 L MCV 77 L MCH 25.6 L RDW 16.5 H Total Protein 5.5 L Albumin 2.8 L - Diagnostic Test Radiology reviewed: Image reviewed, Reports reviewed - CTA of the chest shows - EKG Interpretation by Me Rate: Normal Rhythm: NSR - EKG shows normal sinus rhythm with a ventricular rate of 99 ST-T wave changes Discharge - Discharge Clinical Impression: Chest burning Clinical Impression: (Ruled Out): Vomiting with nausea, Acute exacerbation of back and knee pain Condition: Stable Disposition: HOME, SELF-CARE Additional Instructions: As we discussed, your labs look good today. The CT showed no evidence of blood clot. EKG look good I do want you to take Pepcid as prescribed. Follow-up with the OB doctor this week as planned. Return to the emergency room for any concerns of worsening pain, if you develop any shortness of breath, worsening swelling or any concerns or getting worse. Prescriptions: Famotidine [Pepcid 20 mg Tablet] 20 mg PO DAILY #12 tablet Referrals: WYATT SAENZ DO [NO LOCAL MD] - Follow up as needed
[2018-08-21] MEDS ORDERED: FAMOTIDINE INJ/PF 20 MG/2 ML SDV IV ONE (01:34)
[2018-08-21 01:59] LABS: ABSOLUTE EOSINOPHILS # (AUTO) 0.2 10^3/uL (0.0-0.6); ABSOLUTE LYMPHOCYTES (AUTO) 1.7 10^3/uL (0.5-4.7); ABSOLUTE MONOCYTES (AUTO) 0.7 10^3/uL (0.1-1.4); BASOPHILS % (AUTO) 0.5 % (0-2); EOSINOPHILS % (AUTO) 2.5 % (0-6); HEMATOCRIT 25.7 % (36.0-47.0); HEMOGLOBIN 8.5 g/dL (12.0-15.5); LYMPHOCYTES % (AUTO) 19.9 % (13-45); MEAN CORPUSCULAR HEMOGLOBIN 25.6 pg (27.0-33.4); MEAN CORPUSCULAR HGB CONC 33.2 g/dL (32.0-36.0); MEAN CORPUSCULAR VOLUME 77 fl (80-97); MONOCYTES % (AUTO) 7.6 % (3-13); PLATELET COUNT 215 10^3/uL (150-450); RED BLOOD COUNT 3.33 10^6/uL (3.72-5.28); RED CELL DISTRIBUTION WIDTH 16.5 % (11.5-14.0); SEGMENTED NEUTROPHILS % (AUTO) 69.5 % (42-78); TOTAL CELLS COUNTED % (AUTO) 100 %; WHITE BLOOD COUNT 8.6 10^3/uL (4.0-10.5)
[2018-08-21] MEDS ORDERED: PROMETHAZINE HCL 25 MG TABLET PO ONE (02:30)
[2018-08-21 02:31] LABS: ALANINE AMINOTRANSFERASE 32 U/L (9-52); ALBUMIN 2.8 g/dL (3.5-5.0); ALKALINE PHOSPHATASE 88 U/L (38-126); ANION GAP 9 (5-19); ASPARTATE AMINO TRANSFERASE 27 U/L (14-36); BILIRUBIN,DIRECT 0.2 mg/dL (0.0-0.4); BILIRUBIN,TOTAL 0.2 mg/dL (0.2-1.3); BLOOD UREA NITROGEN 13 mg/dL (7-20); CALCIUM 8.9 mg/dL (8.4-10.2); CARBON DIOXIDE 26 mmol/L (22-30); CHLORIDE 105 mmol/L (98-107); GLUCOSE 100 mg/dL (75-110); POTASSIUM 3.9 mmol/L (3.6-5.0); SODIUM 139.6 mmol/L (137-145); TOTAL PROTEIN 5.5 g/dL (6.3-8.2)
[2018-08-21] MEDS ORDERED: ONDANSETRON ODT 4 MG TAB (6 TAB/ER DISP) PO PRN (02:31)
--- NOTE | 2018-08-21 03:31 | RADIOLOGY REPORT (SQ) ---
EXAM DESCRIPTION: CT CHEST ANGIOGRAPHY WITHOUT THEN WITH IV CONTRAST COMPLETED DATE/TME: 08/21/2018 02:39 CLINICAL HISTORY: 23 years, Female, cp TECHNIQUE: Axial images through the chest were performed after the administration of intravenous contrast using a pulmonary embolus protocol. MIPS were performed. This exam was performed according to our departmental dose-optimization program which includes use of Automated Exposure Control, adjustment of the mA and/or kV according to patient size and/or use of iterative reconstruction technique. FINDINGS: No pulmonary embolus is identified. Normal caliber aorta without dissection. No pericardial effusion. No pleural effusion. No focal lung consolidation. No pneumothorax. Patent central airway. Soft tissues are unremarkable. No acute osseous findings. No acute abnormality within the visualized upper abdomen. IMPRESSION: No pulmonary embolus.
[2018-08-21 04:02] VITALS: BP 124/77
--- NOTE | 2018-08-21 22:52 | EKG REPORT ---
SEVERITY:- ABNORMAL ECG - SINUS RHYTHM NONSPECIFIC T ABNORMALITIES, INFERIOR LEADS : Confirmed by: Jaylen Francis 21-Aug-2018 22:51:36
== END 2018-08-21 04:02 | disposition home or self-care (01) ==
LOC: ER 00:43
DX: R07.9 Chest pain, unspecified (principal); R11.10 Vomiting, unspecified; M54.9 Dorsalgia, unspecified; M25.569 Pain in unspecified knee; R60.0 Localized edema
CPT/HCPCS: 93005; 99284; 96374; 36415; 85025; 80053; 71275; 93010; J3490; S0028

== ENCOUNTER → 2018-12-21 | Outpatient (CLI) | payer BC ==
[2018-12-21 11:20] LABS: FREE T3 2.9 pg/mL (2.77-5.27); FREE T4 (FREE THYROXINE) 0.6 ng/dL (0.78-2.19)
[2018-12-21 11:34] LABS: THYROID STIMULATING HORMONE 4.65 uIU/mL (0.47-4.68)
== END ==
LOC: OD 10:06
PROVIDERS: ATTEND Student in an Organized Health Care Education/Training Program
DX: N64.3 Galactorrhea not associated with childbirth (principal); R94.6 Abnormal results of thyroid function studies
CPT/HCPCS: 36415; 84146; 84439; 84443; 84481

== ENCOUNTER 2019-03-24 20:48 | Emergency (ER) | payer BC ==
--- NOTE | 2019-03-24 21:28 | ER Document Report ---
ED Medical Screen (RME) - General Chief Complaint: Cough Stated Complaint: CHEST PAIN/LEFT ARM PAIN Time Seen by Provider: 03/24/19 21:23 Mode of Arrival: Ambulatory Information source: Patient Notes: 24-year-old female presented to ED for complaint of chest pain across the chest. She states she has been coughing brownish-green chunks for the last week. She states she does not smoke cigarettes. She is alert oriented respirations regular nonlabored. Lungs are clear to auscultation at this time. He states she does not smoke drink or do use any drugs. Pressure in the pit area is 129/8 7 not for follow-up intervals. I have greeted and performed a rapid initial assessment of this patient. A comprehensive ED assessment and evaluation of the patient, analysis of test results and completion of medical decision making process will be conducted by an additional ED providers. TRAVEL OUTSIDE OF THE [place] IN LAST 30 DAYS: No - Related Data Allergies/Adverse Reactions: No Known Allergies Allergy (Verified 03/24/19 21:23) Past Medical History Renal/ Medical History: Denies: Hx Peritoneal Dialysis Musculoskeltal Medical History: Reports Hx Arthritis Past Surgical History: Reports: Hx Section, Hx Orthopedic Surgery - Immunizations Immunizations up to date: Yes Hx Diphtheria, Pertussis, Tetanus Vaccination: Yes - 11/23/14 Physical Exam - Vital signs Vitals: BP 117/68 03/24/19 20:49 Course - Vital Signs Vital signs: Temp Pulse Resp BP Pulse Ox 98.0 F 78 20 129/87 H 96 03/24/19 21:24 03/24/19 21:27 03/24/19 21:24 03/24/19 21:27 03/24/19 21:24 Doctor's Discharge - Discharge
--- NOTE | 2019-03-24 22:24 | RADIOLOGY REPORT (SQ) ---
XR CHEST 2 VIEWS CLINICAL STATEMENT: cough congestion chest pain COMPARISON: CT chest dated 03/23/2019. FINDINGS: Cardiomediastinal silhouette is within normal limits. There is no focal lung consolidation or pleural effusion. No evidence of pulmonary edema or pneumothorax. IMPRESSION: No acute cardiopulmonary disease.
[2019-03-24 22:25] LABS: ABSOLUTE BASOPHILS # (AUTO) 0.1 10^3/uL (0.0-0.2); ABSOLUTE EOSINOPHILS # (AUTO) 0.6 10^3/uL (0.0-0.6); ABSOLUTE LYMPHOCYTES (AUTO) 2.6 10^3/uL (0.5-4.7); ABSOLUTE MONOCYTES (AUTO) 0.7 10^3/uL (0.1-1.4); ABSOLUTE NEUT (AUTO) 5.3 10^3/uL (1.7-8.2); BASOPHILS % (AUTO) 1.4 % (0-2); EOSINOPHILS % (AUTO) 6.4 % (0-6); HEMATOCRIT 37.3 % (36.0-47.0); HEMOGLOBIN 12.3 g/dL (12.0-15.5); LYMPHOCYTES % (AUTO) 28.3 % (13-45); MEAN CORPUSCULAR HEMOGLOBIN 25.4 pg (27.0-33.4); MEAN CORPUSCULAR HGB CONC 33.1 g/dL (32.0-36.0); MEAN CORPUSCULAR VOLUME 77 fl (80-97); MONOCYTES % (AUTO) 7.2 % (3-13); PLATELET COUNT 362 10^3/uL (150-450); RED BLOOD COUNT 4.86 10^6/uL (3.72-5.28); RED CELL DISTRIBUTION WIDTH 14.5 % (11.5-14.0); SEGMENTED NEUTROPHILS % (AUTO) 56.7 % (42-78); TOTAL CELLS COUNTED % (AUTO) 100 %; WHITE BLOOD COUNT 9.3 10^3/uL (4.0-10.5)
[2019-03-24 22:27] LABS: APPEARANCE,URINE SLIGHTLY-CLOUDY; BILIRUBIN,URINE NEGATIVE (NEGATIVE); COLOR,URINE YELLOW; GLUCOSE, URINE NEGATIVE (NEGATIVE); KETONES,URINE NEGATIVE (NEGATIVE); PROTEIN,URINE NEGATIVE (NEGATIVE); URINE SPECIFIC GRAVITY 1.015
--- NOTE | 2019-03-24 22:43 | ER Document Report ---
ED General - General Chief Complaint: Cough Stated Complaint: CHEST PAIN/LEFT ARM PAIN Time Seen by Provider: 03/24/19 21:23 Primary Care Provider: CHANDAN DANG MD [Primary Care Provider] - Follow up as needed Mode of Arrival: Ambulatory Notes: Patient is a 24-year-old female that comes emergency department for chief complaint of cough, congestion, developing ear pain, difficulty hearing from the left ear, and pain across her chest and across her arms because of the frequent coughing. She states she is coughing up some green sputum. She states 2 days ago she had a fever. No fever since. She states her son is also sick with the same symptoms. She denies smoking, she denies asthma, she denies any diagnosed medical history or daily medications. TRAVEL OUTSIDE OF THE [place] IN LAST 30 DAYS: No - Related Data Allergies/Adverse Reactions: No Known Allergies Allergy (Verified 03/24/19 21:23) Past Medical History - General Information source: Patient - Social History Smoking Status: Never Smoker Lives with: Family Family History: Reviewed & Not Pertinent, Other - Patient is unaware of sick contacts. Patient has suicidal ideation: No Patient has homicidal ideation: No Renal/ Medical History: Denies: Hx Peritoneal Dialysis Musculoskeletal Medical History: Reports Hx Arthritis Past Surgical History: Reports: Hx Section, Hx Orthopedic Surgery - Immunizations Immunizations up to date: Yes Hx Diphtheria, Pertussis, Tetanus Vaccination: Yes - 11/23/14 Review of Systems - Review of Systems Constitutional: See HPI EENT: See HPI Cardiovascular: No symptoms reported Respiratory: See HPI Gastrointestinal: No symptoms reported Genitourinary: No symptoms reported Female Genitourinary: No symptoms reported Musculoskeletal: No symptoms reported Skin: No symptoms reported Hematologic/Lymphatic: No symptoms reported Neurological/Psychological: No symptoms reported Physical Exam - Vital signs Vitals: BP 117/68 03/24/19 20:49 - Notes Notes: GENERAL: Mildly ill-appearing but not toxic HEAD: Normocephalic, atraumatic. EYES: Pupils equal, round, and reactive to light. Extraocular movements intact. ENT: Oral mucosa moist, tongue midline. Oropharynx unremarkable. Airway patent. Rhinorrhea, no nasal septal hematoma. Right ear normal, left ear showing erythema, loss of landmarks, slight effusion of the tympanic membrane. Mastoids normal. Otherwise unremarkable. NECK: Full range of motion. Supple. Trachea midline. LUNGS: Frequent cough which is congested, no tachypnea, no labored breathing, no wheezes, rales, or rhonchi. There is mild generalized tenderness with palpation over the anterior chest wall. HEART: Regular rate and rhythm. No murmur ABDOMEN: Soft, non-tender. Non-distended. EXTREMITIES: Moves all 4 extremities spontaneously. No edema, normal radial and dorsalis pedis pulses bilaterally. No cyanosis. BACK: no cervical, thoracic, lumbar midline tenderness. No saddle anesthesia, normal distal neurovascular exam. Moves all extremities in full range of motion. NEUROLOGICAL: Alert and oriented x3. Normal speech. Cranial nerves II through XII grossly intact. PSYCH: Normal affect, normal mood. SKIN: Warm, dry, normal turgor. No rashes or lesions noted. Course - Re-evaluation Re-evalutation: Chest x-ray clear, EKG without concerning findings, patient very well-appearing with sick contacts and overall clinical appearance of acute bronchitis with developing left otitis media. Symptoms have been present for a week. Patient does not hypoxic, lungs clear, she is not in respiratory distress. She will be treated for bronchitis, otitis media, symptomatically, discussed follow-up and return precautions. Patient states appreciation and agreement. - Vital Signs Vital signs: Temp Pulse Resp BP Pulse Ox 97.8 F 88 16 138/76 H 100 03/24/19 23:42 03/24/19 23:42 03/24/19 23:42 03/24/19 23:42 03/24/19 23:42 - Laboratory Result Diagrams: 03/24/19 22:05 03/24/19 22:05 Laboratory results interpreted by me: 03/24/19 03/24/19 03/24/19 22:05 22:05 22:05 MCV 77 L MCH 25.4 L RDW 14.5 H Eos % (Auto) 6.4 H Total Protein 8.3 H Albumin 5.1 H Urine Urobilinogen 2.0 H Leukocyte Esterase Rfl TRACE H - EKG Interpretation by Me Additional EKG results interpreted by me: EKG shows sinus rhythm at a rate of 63, QTC of 398, normal axis, there is an inverted T wave in lead III, flattened T wave in aVF, no ST segment changes in consecutive leads. Discharge - Discharge Clinical Impression: Productive cough, Chest wall pain Upper respiratory infection Qualifiers: URI type: unspecified URI Qualified Code(s): J06.9 - Acute upper respiratory infection, unspecified Otitis media Qualifiers: Otitis media type: suppurative Chronicity: acute Laterality: left Recurrence: non-recurrent Spontaneous tympanic membrane rupture: without spontaneous rupture Qualified Code(s): H66.002 - Acute suppurative otitis media without spontaneous rupture of ear drum, left ear Condition: Stable Disposition: HOME, SELF-CARE Additional Instructions: Your evaluation is consistent with bronchitis and a developing left ear infection. Your chest x-ray is clear, your lab work and remaining tests are reassuring. Take antibiotics as prescribed, take prednisone as prescribed for the bronchitis, using nasal spray, Tessalon for cough, and take diphenhydramine 25 to 50 mg at night to help reduce postnasal drainage and help you sleep. Drink plenty of fluids and rest. Follow-up with primary care. Return for any concerning worsening symptoms including spiking fever, difficulty breathing, or any other concerning or worsening symptoms. Prescriptions: Benzonatate [Tessalon Perles 100 mg Capsule] 100 mg PO Q8HP PRN #20 capsule PRN Reason: Amoxicillin Trihydrate [Amoxil 500 mg Capsule] 1,000 mg PO BID 7 Days #28 capsule Prednisone [Deltasone 10 mg Tablet] 10 mg PO ASDIR PRN #21 tablet PRN Reason: Fluticasone Propionate [Flonase Nasal [place] 50 Mcg/[place] 16 gm] 2 sprays NASL Q12 #1 inhaler Forms: Return to Work Referrals: CHANDAN DANG MD [Primary Care Provider] - Follow up as needed
[2019-03-24 22:47] LABS: ALBUMIN 5.1 g/dL (3.5-5.0); ALKALINE PHOSPHATASE 84 U/L (38-126); ANION GAP 11 (5-19); ASPARTATE AMINO TRANSFERASE 20 U/L (14-36); BILIRUBIN,DIRECT 0.1 mg/dL (0.0-0.4); BILIRUBIN,TOTAL 0.5 mg/dL (0.2-1.3); BLOOD UREA NITROGEN 13 mg/dL (7-20); CALCIUM 10.1 mg/dL (8.4-10.2); CARBON DIOXIDE 26 mmol/L (22-30); CHLORIDE 103 mmol/L (98-107); GLUCOSE 97 mg/dL (75-110); TOTAL PROTEIN 8.3 g/dL (6.3-8.2)
[2019-03-24 23:39] VITALS: BP 138/76
--- NOTE | 2019-03-24 23:58 | EKG REPORT ---
SEVERITY:- BORDERLINE ECG - SINUS RHYTHM BORDERLINE T ABNORMALITIES, INFERIOR LEADS : Confirmed by: Heather Yu MD 24-Mar-2019 23:57:57
== END 2019-03-24 23:42 | disposition home or self-care (01) ==
LOC: ER 20:48
DX: J06.9 Acute upper respiratory infection, unspecified (principal); H66.002 Acute suppurative otitis media without spontaneous rupture of ear drum, left ear; R07.9 Chest pain, unspecified; M79.602 Pain in left arm
CPT/HCPCS: 36415; 71046; 80053; 81001; 84484; 84703; 85025; 93005; 93010; 99284

== ENCOUNTER 2019-05-31 19:18 | Emergency (ER) | payer BC ==
--- NOTE | 2019-05-31 20:13 | ER Document Report ---
ED Medical Screen (RME) - General Stated Complaint: LEFT ARM BURNING/HEART RACING Time Seen by Provider: 05/31/19 20:06 Primary Care Provider: CHANDAN DANG MD [Primary Care Provider] - Follow up as needed Mode of Arrival: Ambulatory Information source: Patient Notes: 24-year-old female presents to the emergency department with complaints of left arm burning pain that started approximately 1800 tonight. She also complains of upper epigastric abdominal pain that shoots down into her vagina feels like it is burning. Denies pain with void. Denies fever vomiting diarrhea. Denies trauma. Patient was here in March for left arm pain but reports this pain is different. Patient reports she is right-handed. Denies lifting or carrying any heavy items such as a baby car seat. She reports she uses her right hand I have greeted and performed a rapid initial assessment of this patient. A comprehensive ED assessment and evaluation of the patient, analysis of test results and completion of the medical decision making process will be conducted by additional ED providers. TRAVEL OUTSIDE OF THE [place] IN LAST 30 DAYS: No - Related Data Allergies/Adverse Reactions: No Known Allergies Allergy (Verified 05/31/19 20:05) Home Medications: Synthroid Past Medical History Renal/ Medical History: Denies: Hx Peritoneal Dialysis Musculoskeltal Medical History: Reports Hx Arthritis Past Surgical History: Reports: Hx Section, Hx Orthopedic Surgery - Immunizations Immunizations up to date: Yes Hx Diphtheria, Pertussis, Tetanus Vaccination: Yes - 11/23/14 Physical Exam - Vital signs Vitals: Temp Pulse Resp BP Pulse Ox 98.7 F 85 18 128/71 H 99 05/31/19 19:53 05/31/19 19:53 05/31/19 19:53 05/31/19 19:53 05/31/19 19:53 Course - Vital Signs Vital signs: Temp Pulse Resp BP Pulse Ox 98.7 F 85 18 128/71 H 99 05/31/19 19:53 05/31/19 19:53 05/31/19 19:53 05/31/19 19:53 05/31/19 19:53 Doctor's Discharge - Discharge Referrals: CHANDAN DANG MD [Primary Care Provider] - Follow up as needed
--- NOTE | 2019-05-31 20:14 | EKG REPORT ---
SEVERITY:- BORDERLINE ECG - SINUS RHYTHM BORDERLINE T ABNORMALITIES, INFERIOR LEADS : Confirmed by: Servando De Oliveira MD 31-May-2019 20:14:01
[2019-05-31 21:57] LABS: ABSOLUTE EOSINOPHILS # (AUTO) 0.1 10^3/uL (0.0-0.6); ABSOLUTE LYMPHOCYTES (AUTO) 2.5 10^3/uL (0.5-4.7); ABSOLUTE MONOCYTES (AUTO) 0.6 10^3/uL (0.1-1.4); ABSOLUTE NEUT (AUTO) 5.3 10^3/uL (1.7-8.2); BASOPHILS % (AUTO) 0.6 % (0-2); EOSINOPHILS % (AUTO) 1.2 % (0-6); HEMATOCRIT 33.9 % (36.0-47.0); HEMOGLOBIN 11.4 g/dL (12.0-15.5); LYMPHOCYTES % (AUTO) 29.2 % (13-45); MEAN CORPUSCULAR HEMOGLOBIN 25.3 pg (27.0-33.4); MEAN CORPUSCULAR HGB CONC 33.6 g/dL (32.0-36.0); MEAN CORPUSCULAR VOLUME 75 fl (80-97); MONOCYTES % (AUTO) 7.4 % (3-13); PLATELET COUNT 302 10^3/uL (150-450); RED BLOOD COUNT 4.49 10^6/uL (3.72-5.28); RED CELL DISTRIBUTION WIDTH 15.1 % (11.5-14.0); SEGMENTED NEUTROPHILS % (AUTO) 61.6 % (42-78); TOTAL CELLS COUNTED % (AUTO) 100 %; WHITE BLOOD COUNT 8.7 10^3/uL (4.0-10.5)
[2019-05-31 22:02] LABS: APPEARANCE,URINE CLEAR; BILIRUBIN,URINE NEGATIVE (NEGATIVE); COLOR,URINE YELLOW; GLUCOSE, URINE NEGATIVE (NEGATIVE); KETONES,URINE NEGATIVE (NEGATIVE); LEUKOCYTE ESTERASE,URINE SMALL (NEGATIVE); NITRITE,URINE NEGATIVE (NEGATIVE); PROTEIN,URINE NEGATIVE (NEGATIVE); UROBILINOGEN,URINE NEGATIVE mg/dL (<2.0)
[2019-05-31 22:11] LABS: ALBUMIN 4.6 g/dL (3.5-5.0); ALKALINE PHOSPHATASE 68 U/L (38-126); ANION GAP 10 (5-19); ASPARTATE AMINO TRANSFERASE 18 U/L (14-36); BILIRUBIN,DIRECT 0.3 mg/dL (0.0-0.4); BILIRUBIN,TOTAL 0.3 mg/dL (0.2-1.3); BLOOD UREA NITROGEN 17 mg/dL (7-20); CALCIUM 9.7 mg/dL (8.4-10.2); CARBON DIOXIDE 26 mmol/L (22-30); CHLORIDE 104 mmol/L (98-107); GLUCOSE 91 mg/dL (75-110); POTASSIUM 4.2 mmol/L (3.6-5.0); TOTAL PROTEIN 7.9 g/dL (6.3-8.2)
[2019-06-01 00:25] VITALS: BP 129/81
== END 2019-06-01 01:49 | disposition left against medical advice (07) ==
LOC: ER 19:18
DX: R10.13 Epigastric pain (principal); M79.602 Pain in left arm
CPT/HCPCS: 36415; 80053; 81001; 81025; 83690; 85025; 93005; 93010

== ENCOUNTER 2020-01-15 19:47 | Emergency (ER) | payer BC ==
[2020-01-15] MEDS ORDERED: ONDANSETRON 4 MG TAB.RAPDIS PO ONE (21:18)
[2020-01-15] MEDS ORDERED: PHENAZOPYRIDINE HCL 200 MG TABLET PO ONE (21:18)
--- NOTE | 2020-01-15 21:19 | ER Document Report ---
HPI - HPI Patient complains to provider of: possible uti Time Seen by Provider: 01/15/20 21:14 Pain Level: 3 Notes: 24-year-old female to the emergency department with bladder pressure, bladder pain, left-sided pelvic pain that began today at work. She states that this feels a lot like her past UTI. She states that she took 800 mg ibuprofen prior to arrival. Had any fevers or chills, flank pain, chest pain, shortness of breath, blood in her urine, vaginal discharge, concern for STD. - ROS Systems Reviewed and Negative: Yes All other systems reviewed and negative - CONSTITUTIONAL Constitutional: DENIES: Fever, Chills - EENT EENT: DENIES: Sore Throat, Ear Pain, Congestion - NEURO Neurology: DENIES: Headache - CARDIOVASCULAR Cardiovascular: DENIES: Chest pain - RESPIRATORY Respiratory: DENIES: Trouble Breathing, Coughing - GASTROINTESTINAL Gastrointestinal: REPORTS: Abdominal Pain. DENIES: Nausea, Patient vomiting, Diarrhea - URINARY Urinary: REPORTS: Dysuria, Frequency - REPRODUCTIVE LMP: 3 wk ago Reproductive: DENIES: : - MUSCULOSKELETAL Musculoskeletal: DENIES: Extremity pain, Back Pain - DERM Skin Color: Normal Skin Problems: None Past Medical History - General Information source: Patient - Social History Smoking Status: Never Smoker Frequency of alcohol use: None Drug Abuse: None Family History: Reviewed & Not Pertinent, Other - Patient is unaware of sick contacts. Renal/ Medical History: Denies: Hx Peritoneal Dialysis Musculoskeletal Medical History: Reports Hx Arthritis Past Surgical History: Reports: Hx Section, Hx Orthopedic Surgery - Immunizations Immunizations up to date: Yes Hx Diphtheria, Pertussis, Tetanus Vaccination: Yes - 11/23/14 Vertical Provider Document - CONSTITUTIONAL Agree With Documented VS: Yes Exam Limitations: No Limitations General Appearance: WD/WN, No Apparent Distress - INFECTION CONTROL TRAVEL OUTSIDE OF THE [place] IN LAST 30 DAYS: No - HEENT HEENT: Atraumatic, Normocephalic, PERRLA - NECK Neck: Normal Inspection, Supple - RESPIRATORY Respiratory: Breath Sounds Normal, No Respiratory Distress. negative: Rales, Rhonchi, Wheezing - CARDIOVASCULAR Cardiovascular: Regular Rate, Regular Rhythm, No Murmur - GI/ABDOMEN Gastrointestinal: Abdomen Soft, Abdomen Non-Tender, No Organomegaly - BACK Back: Normal Inspection. negative: CVA Tenderness-Right, CVA Tenderness-Left - MUSCULOSKELETAL/EXTREMETIES Musculoskeletal/Extremeties: JURGEN JAMES - NEURO Level of Consciousness: negative: Awake, Appropriate Motor/Sensory: negative: No Motor Deficit, No Sensory Deficit - DERM Integumentary: Warm, Dry Course - Re-evaluation Re-evalutation: Impression: UTI, dysuria. Will place on 3 days of antibiotics while waiting culture. Encouraged pushing fluids. Encouraged to return if worsening symptoms. Patient agrees with the plan. - Vital Signs Vital signs: Temp Pulse Resp BP Pulse Ox 98.3 F 85 18 125/81 99 01/15/20 20:10 01/15/20 20:10 01/15/20 20:10 01/15/20 20:10 01/15/20 20:10 Discharge - Discharge Clinical Impression: Dysuria, Urinary frequency Condition: Stable Disposition: HOME, SELF-CARE Additional Instructions: We will await urine culture. Please take the 3-day course of antibiotics and use Pyridium for symptoms. Push fluids. May continue use of Motrin and Tylenol. Return if any worsening symptoms. Prescriptions: Ciprofloxacin HCl [Cipro] 500 mg PO BID #6 tablet Phenazopyridine HCl [Pyridium 200 mg Tablet] 200 mg PO TID #9 tablet Referrals: CHANDAN DANG MD [ACTIVE STAFF] - Follow up in 1 week
[2020-01-15 21:44] LABS: AMORPHOUS SEDIMENT,URINE TRACE /HPF; APPEARANCE,URINE CLOUDY; BILIRUBIN,URINE NEGATIVE (NEGATIVE); CALCIUM OXALATE CRYSTALS,URINE FEW /HPF; COLOR,URINE YELLOW; GLUCOSE, URINE NEGATIVE (NEGATIVE); KETONES,URINE NEGATIVE (NEGATIVE); PROTEIN,URINE NEGATIVE (NEGATIVE); URINE SPECIFIC GRAVITY 1.025
[2020-01-15 22:27] VITALS: BP 117/81
== END 2020-01-15 22:30 | disposition home or self-care (01) ==
LOC: ER 19:47
DX: R35.0 Frequency of micturition (principal); R30.0 Dysuria; R39.89 Other symptoms and signs involving the genitourinary system; Z79.899 Other long term (current) drug therapy; R10.9 Unspecified abdominal pain
CPT/HCPCS: 99283; 81025; 81001; S0119; J3490

== ENCOUNTER 2020-03-04 19:58 | Emergency (ER) | payer BC ==
--- NOTE | 2020-03-04 20:29 | ER Document Report ---
ED Medical Screen (RME) - General Chief Complaint: Leg Pain Stated Complaint: BURNING PAIN SENSATION IN LEGS Time Seen by Provider: 03/04/20 20:24 Mode of Arrival: Ambulatory Information source: Patient Notes: HPI; 25-year-old female past medical history significant for thyroid disorder presents to the emergency room complaining of bilateral burning, numbness to both of her legs for the past 2 days. She denies any trauma or injury. Nothing makes it worse nothing makes it better. Denies any recent surgery. Not on any oral contraceptives. No recent travel. No history of DVTs or PEs. Patient is concerned for blood clots. PE: Alert and oriented x3. Lungs: Clear to auscultation without rales, rhonchi, wheezes. Heart: Regular rate rhythm without murmurs, rubs, gallops. Bilateral calves are tender to palpation but not swollen. She does have a positive Homans to the right. I have greeted and performed a rapid initial assessment of this patient. A comprehensive ED assessment and evaluation of the patient, analysis of test results and completion of the medical decision making process will be conducted by additional ED providers. I have specifically instructed the patient or family members with the patient to immediately return to any nursing staff should anything change in the patient's condition or with their chief complaint. TRAVEL OUTSIDE OF THE [place] IN LAST 30 DAYS: No - Related Data Allergies/Adverse Reactions: No Known Allergies Allergy (Verified 05/31/19 20:05) Past Medical History Renal/ Medical History: Denies: Hx Peritoneal Dialysis Musculoskeltal Medical History: Reports Hx Arthritis Past Surgical History: Reports: Hx Section, Hx Orthopedic Surgery - Immunizations Immunizations up to date: Yes Hx Diphtheria, Pertussis, Tetanus Vaccination: Yes - 11/23/14 Physical Exam - Vital signs Vitals: Temp Pulse Resp BP Pulse Ox 98.5 F 71 18 118/78 100 03/04/20 20:17 03/04/20 20:17 03/04/20 20:17 03/04/20 20:17 03/04/20 20:17 Course - Vital Signs Vital signs: Temp Pulse Resp BP Pulse Ox 98.5 F 71 18 118/78 100 03/04/20 20:17 03/04/20 20:17 03/04/20 20:17 03/04/20 20:17 03/04/20 20:17
[2020-03-04 21:25] LABS: ABSOLUTE EOSINOPHILS # (AUTO) 0.2 10^3/uL (0.0-0.6); ABSOLUTE MONOCYTES (AUTO) 0.5 10^3/uL (0.1-1.4); ABSOLUTE NEUT (AUTO) 4.3 10^3/uL (1.7-8.2); BASOPHILS % (AUTO) 0.6 % (0-2); EOSINOPHILS % (AUTO) 3.4 % (0-6); HEMATOCRIT 33.8 % (36.0-47.0); HEMOGLOBIN 11.1 g/dL (12.0-15.5); MEAN CORPUSCULAR HGB CONC 32.9 g/dL (32.0-36.0); MEAN CORPUSCULAR VOLUME 76 fl (80-97); MONOCYTES % (AUTO) 6.9 % (3-13); PLATELET COUNT 338 10^3/uL (150-450); RED BLOOD COUNT 4.46 10^6/uL (3.72-5.28); SEGMENTED NEUTROPHILS % (AUTO) 61.1 % (42-78); TOTAL CELLS COUNTED % (AUTO) 100 %; WHITE BLOOD COUNT 7.1 10^3/uL (4.0-10.5)
[2020-03-04 21:43] LABS: ALBUMIN 4.6 g/dL (3.5-5.0); ALKALINE PHOSPHATASE 79 U/L (38-126); ANION GAP 9 (5-19); ASPARTATE AMINO TRANSFERASE 18 U/L (14-36); BILIRUBIN,DIRECT 0.1 mg/dL (0.0-0.4); BILIRUBIN,TOTAL 0.3 mg/dL (0.2-1.3); BLOOD UREA NITROGEN 16 mg/dL (7-20); CALCIUM 9.9 mg/dL (8.4-10.2); CARBON DIOXIDE 26 mmol/L (22-30); CHLORIDE 104 mmol/L (98-107); GLUCOSE 97 mg/dL (75-110); POTASSIUM 4.2 mmol/L (3.6-5.0); TOTAL PROTEIN 7.6 g/dL (6.3-8.2)
--- NOTE | 2020-03-04 22:12 | RADIOLOGY REPORT (SQ) ---
EXAM DESCRIPTION: US EXTREMITY VEINS BILATERAL COMPLETED DATE/TME: 03/04/2020 21:41 CLINICAL HISTORY: 25 years, Female, leg pain COMPARISON: None. TECHNIQUE: Axial 2-D grayscale images of both lower extremities were acquired. Doppler was utilized. LIMITATIONS: None. FINDINGS: Bilateral common femoral, femoral, popliteal, posterior tibial, peroneal, greater saphenous, and small saphenous veins demonstrate normal compressibility and phasicity. Superficial soft tissues show no suspicious finding. IMPRESSION: No evidence of deep or superficial venous thrombosis within either lower extremity. copyright 2010 [employer]- All Rights Reserved
--- NOTE | 2020-03-04 23:46 | ER Document Report ---
HPI - HPI Patient complains to provider of: Rule leg burning and numbness Time Seen by Provider: 03/04/20 20:24 Pain Level: Denies Context: 25-year-old female past medical history significant for hypothyroidism presents to the emergency room complaining of burning and numbness sensation to both of her legs for the past 2 days. States symptoms are intermittent and she is currently asymptomatic. She denies any trauma or injury. Not taking anything for her symptoms. No history of back pain or back trauma. No history of sciatica. Denies any recent travel. No history of DVT or PEs. Not on any contraceptives. Denies sedentary lifestyle. Patient states "I am concerned about blood clots" no recent surgery. Associated Symptoms: None Exacerbated by: Denies Relieved by: Denies Similar symptoms previously: No Recently seen / treated by doctor: No - ROS Systems Reviewed and Negative: Yes All other systems reviewed and negative - CONSTITUTIONAL Constitutional: DENIES: Fever - NEURO Neurology: DENIES: Weakness - REPRODUCTIVE Reproductive: DENIES: : - MUSCULOSKELETAL Musculoskeletal: REPORTS: Extremity pain. DENIES: Back Pain - DERM Skin Color: Normal, [place] Skin Problems: None Past Medical History - General Information source: Patient - Social History Smoking Status: Former Smoker Frequency of alcohol use: None Drug Abuse: None Family History: Reviewed & Not Pertinent, Other - Patient is unaware of sick contacts. Renal/ Medical History: Denies: Hx Peritoneal Dialysis Musculoskeletal Medical History: Reports Hx Arthritis Past Surgical History: Reports: Hx Section, Hx Orthopedic Surgery - Immunizations Immunizations up to date: Yes Hx Diphtheria, Pertussis, Tetanus Vaccination: Yes - 11/23/14 Vertical Provider Document - CONSTITUTIONAL Agree With Documented VS: Yes Exam Limitations: No Limitations General Appearance: Mild Distress - INFECTION CONTROL TRAVEL OUTSIDE OF THE [place] IN LAST 30 DAYS: No - HEENT HEENT: Atraumatic, Normocephalic - NECK Neck: Normal Inspection, Supple - RESPIRATORY Respiratory: Breath Sounds Normal, No Respiratory Distress, Chest Non-Tender - CARDIOVASCULAR Cardiovascular: Regular Rate, Regular Rhythm, No Murmur - BACK Back: Normal Inspection. negative: CVA Tenderness-Right, CVA Tenderness-Left - MUSCULOSKELETAL/EXTREMETIES Musculoskeletal/Extremeties: FROM, Tender - Tenderness on palpation to the bilateral calves. No obvious swelling noted. Positive Homans' sign on the right. - NEURO Level of Consciousness: Awake, Alert, Appropriate Motor/Sensory: No Motor Deficit, No Sensory Deficit Notes: Positive with bilateral pedal pulses. Ambulatory with a steady gait. Neurovascularly intact. - DERM Integumentary: Warm, Dry, No Rash Course - Re-evaluation Re-evalutation: 03/04/20 23:50 Patient is resting comfortably she remains pain-free. Reviewed all lab and negative Doppler ultrasounds with the patient. She is ambulatory with a steady gait. She is neurovascularly intact. Counseled on the importance of an outpatient follow-up with a primary care physician. Tylenol and or Motrin as needed for pain. Patient was given strict return to the emergency room guideli héctor. Return for any new or worsening symptoms. All questions were answered. Patient verbalized understanding and agrees with plan of care. - Vital Signs Vital signs: Temp Pulse Resp BP Pulse Ox 98.5 F 71 18 118/78 100 03/04/20 20:17 03/04/20 20:17 03/04/20 20:17 03/04/20 20:17 03/04/20 20:17 - Laboratory Result Diagrams: 03/04/20 20:50 03/04/20 20:50 Laboratory results interpreted by me: 03/04/20 20:50 Hgb 11.1 L Hct 33.8 L MCV 76 L MCH 25.0 L - Diagnostic Test Radiology reviewed: Reports reviewed Discharge - Discharge Clinical Impression: Paresthesia of bilateral legs Condition: Stable Disposition: HOME, SELF-CARE Instructions: Numbness or Paresthesia ([facility]) Additional Instructions: Tylenol and or Motrin as needed for pain. Outpatient follow-up with a primary care physician if not improving in 2 to 3 days. Return to the emergency room for any new or worsening symptoms. Referrals: SHERRY ROJAS MD [ACTIVE STAFF] - Follow up as needed
[2020-03-05 00:02] VITALS: BP 148/68
== END 2020-03-05 00:02 | disposition home or self-care (01) ==
LOC: ER 19:58
DX: R20.8 Other disturbances of skin sensation (principal); R20.0 Anesthesia of skin; Z87.891 Personal history of nicotine dependence
CPT/HCPCS: 36415; 80053; 84703; 85025; 93970; 99284